=== PATIENT | female | born 1975 | race Two or more races ===

== ENCOUNTER 2018-10-12 07:20 | Day surgery (SDC) | payer MEDICAID ==
[~2018-10-12] VITALS: Ht 162.6 cm; Wt 102.5 kg
[2018-10-12 08:07] LABS: INR 1.17 (0.85-1.17); PROTIME 14.3 SECONDS (11.6-15.0)
[2018-10-12 08:08] LABS: APTT 34.3 SECONDS (22.8-39.4)
[2018-10-12 08:10] LABS: ANION GAP 16.3 mmol/L (8-16); CALCIUM 9.5 mg/dL (8.5-10.1); CARBON DIOXIDE 26.1 mmol/L (21.0-32.0); CREATININE - SERUM 4.9 mg/dL (0.6-1.3); POTASSIUM - SERUM 3.4 mmol/L (3.5-5.1)
[2018-10-12 08:17] LABS: BASOPHILS 0.7 % (0-2); EOSINOPHILS 5.6 % (0-7); HEMATOCRIT 33.4 % (36.0-48.0); HEMOGLOBIN 11.7 g/dL (12-16); IMMATURE GRANULOCYTES 0.3 % (0-5); LYMPHOCYTES 27.6 % (15-50); MCH 33.7 pg (26.0-34.0); MCV 96.3 fL (80.0-100.0); MEAN PLATELET VOLUME 9.8 fL (7.4-10.4); MONOCYTES 5.4 % (2-11); NEUTROPHILS 60.4 % (40-80); PLATELET COUNT 106 10x3/uL (130-400); RBC 3.47 10x6/uL (4.00-5.40)
[2018-10-12] MEDS ORDERED: XANAX0.5 MG PO (08:52)
[2018-10-12] MEDS ORDERED: METOLAZONE5 MG PO (08:53)
[2018-10-12] MEDS ORDERED: ZOLOFT100 MG PO (08:53)
[2018-10-12] MEDS ORDERED: COREG6.25 MG (08:53)
[2018-10-12] MEDS ORDERED: ZOFRAN8 MG PO (08:54)
[2018-10-12] MEDS ORDERED: CLOTRIMAZOLE-BETAMET (08:55)
[2018-10-12 09:11] VITALS: BP 107/38; BMI 38.9
[2018-10-12 09:31] VITALS: BP 107/38; Ht 162.6 cm; Wt 102.5 kg
[2018-10-12] MEDS ORDERED: INCRUSE ELLI62.5 MCG INH (09:42)
[2018-10-12 10:02] LABS: HCG SERUM NEGATIVE (NEGATIVE)
--- NOTE | 2018-10-12 14:29 | NUR ---
LAP PD CATH UNABLE TO DO, MARCUS.
--- NOTE | 2018-10-12 14:32 | NUR ---
REFER TO DR SALAZAR DICTATION FOR CANCELLATION OF PD CATH, MARCUS.
--- NOTE | 2018-10-12 16:16 | NUR ---
1530-RECD TO ROOM FROM PACU. DROWSY. RESP WITH EASE. 1545-[facility] AP[facility] FOR RENAL NOTIFIED ON PATIENTS RETURN, HAS AVF, AND PD UNABLE TO BE PLACED. CT THIS AFTERNOON BEFORE DISCHARGE. 1600-CT HERE WITH ORAL CONTRAST.
--- NOTE | 2018-10-12 16:54 | NUR ---
1650-TO CT VIA STRETCHER.
--- NOTE | 2018-10-12 17:33 | NUR ---
1715-returned from CT-renal tray ordered.
--- NOTE | 2018-10-15 16:17 | OP ---
PATIENT NAME: MADISON SHIN MEDICAL RECORD: [id number] :75 LOCATION:[facility] ADMISSION DATE: SURGEON: PASCUAL ALVAREZ MD DATE OF OPERATION: 10/12/2018 REFERRED BY: Rudy Wright MD PREOPERATIVE DIAGNOSES: End-stage renal disease and dependence on hemodialysis with a tunneled dialysis catheter as her only dialysis access. POSTOPERATIVE DIAGNOSES: End-stage renal disease and dependence on hemodialysis with a tunneled dialysis catheter as her only dialysis access, large pelvic and lower abdominal mass or tumor. SURGEON: Pascual Alvarez MD ANESTHESIA: General endotracheal anesthesia as well as regional block per DAIRY FARM SUPERVISOR. OPERATIONS PERFORMED: 1. Creation of a right wrist Renetta-type radiocephalic primary AV fistula. 2. Diagnostic laparoscopy. PREOPERATIVE NOTE: Ms. Shin is a 43-year-old female from [place], who has been on dialysis now for 9 or 10 months with a catheter and has not had long-term dialysis access, which she now needs. She was referred to me by Dr. Wright for that reason. She is brought to the operating room today with plans to place a peritoneal dialysis catheter and also to hopefully create a fistula in the right arm where the vein mapping has demonstrated disappointingly small vessels. After the block was administered and general anesthesia, the patient's right arm was prepped and draped in a sterile manner. I used a Alpine drain as a proximal venous tourniquet and applied nitroglycerin paste and did duplex ultrasound examination of the veins in the upper extremity and found that she had really an excellent cephalic vein in the forearm and at the wrist with an adequate radial artery of about 2.5 mm in diameter, and I elected to go ahead with a primary wrist Renetta fistula. This is done with the knowledge that there is some risk of it not maturing and adding further delay or additional time to the contact time she already has with the catheter, but hopefully this will mature. It looks like it was worth the chance at this point. Diagnostic laparoscopy initiated with plans to implant a peritoneal dialysis catheter and terminated when it was apparent that a mass was occupying a significant volume within the abdomen and pelvis and this was really making PD catheter implantation impossible. A longitudinal incision was made at the wrist and the cephalic vein exposed and dissected from the surrounding tissues. It was treated with topical papaverine intermittently. It was ligated distally and divided and bevelled. It was flushed with heparinized saline and hydrostatically distended and treated again with topical papaverine. The radial artery was then exposed. It was about a 2.5-mm vessel. It was controlled proximally and distally with Silastic tapes and also treated with topical papaverine. The vein was stripped of adventitia and prepared for anastomosis. The artery was occluded. An arteriotomy about 6 mm in length was made and the artery flushed proximally and distally with OPERATIVE REPORT [id number] MADISON SHIN heparinized saline. After that, an end-to-side, end-to-vein to [id number] anastomosis was carried out with running 7-0 Prolene and when that was completed and the occluding loops and clamps released, excellent pulsatile continuous flow developed immediately within the fistula manifested by palpable thrill and good Doppler signal and there was good flow in the radial artery proximal and distal to the anastomosis. The wound was infiltrated with 0.25% Marcaine without epinephrine and closed with interrupted 3-0 Vicryl and running intracuticular 4-0 Monocryl and Dermabond glue. It was dressed with Maxorb Ag, Tegaderm, and Cavilon skin prep. The patient's arm was then placed at her side and tucked beneath the drapes. The abdomen had been prepped and draped already for the laparoscopy. I made an incision in the left upper quadrant and inserted a 5-mm XL Optiview type port with a 5-mm 0-degree laparoscope in place. Pneumoperitoneum was established with carbon dioxide. Upon entering the abdominal cavity with the telescope, I found that there was really very little room. The patient was given additional paralytics and her anesthetic deepened and this resulted really at only modest improvement in the working space and visible field. I did find that there was a mass in the pelvis, which seemed to occupy or lie within the mesentery of the sigmoid colon and cecum. There was distortion of the ovaries and fallopian tubes stretched upward over this mass and there were 2 fairly small indirect inguinal hernias noted also. I did not do any biopsies. The mass was smooth and all of the visible surfaces and I think the next step will be to get a CT scan. The laparoscope was removed and insufflated carbon dioxide allowed to escape after which the 5-mm port was removed. One additional 5-mm port had been placed in the left lower quadrant for instruments and that port was also removed and that site infiltrated with Marcaine. Both were closed with interrupted inverted 3-0 Vicryl and Dermabond glue and dressed with Maxorb Ag, Tegaderm, and Cavilon skin prep. The patient was awakened and extubated and taken to the recovery room. PLAN: The patient should be able to go home today, and she will be appointed to return to see me in my office probably on of next week. In the meantime, she can leave the original operative dressing intact and she may shower. I will try to get a CT scan of the abdomen and pelvis with and without contrast done this afternoon before she leaves to go home. She will no doubt need further surgical referral for removal of this mass and at that time probably repair of her hernias and hopefully also insertion of peritoneal dialysis catheter. I have shown the intraoperative photographs to Dr. Cason, who agrees and is aware of the patient. TRANSINT:[id number] Voice Confirmation ID: [id number] DOCUMENT ID: [id number] cc: Eloy Bello [phone] Tanesha Orantes [facility] [phone] OPERATIVE REPORT [id number] MADISON SHIN JAMES MD at 1617 CC: DIALYSIS ELOY CENTRE EUGENE and RUDY WRIGHT [phone] DICTATION DATE: 10/12/18 1554 SOCIAL WORK PROGRAM COORDINATOR: 10/13/18 0324 [facility] 10/12/18 [facility] [address] [place] [address]
== END 2018-10-12 18:20 | disposition home or self-care (01) ==
LOC: D.OPS 07:20
PROVIDERS: Internal Medicine Nephrology; Surgery
DX: N18.6 End stage renal disease (principal); Z99.2 Dependence on renal dialysis; R19.09 Other intra-abdominal and pelvic swelling, mass and lump; Z01.812 Encounter for preprocedural laboratory examination

== ENCOUNTER 2019-03-29 07:11 | Day surgery (SDC) | payer MEDICAID ==
[~2019-03-29] VITALS: Ht 162.6 cm; Wt 101.6 kg
[~2019-03-29 07:11] MED LIST: CLOTRIMAZOLE-BETAMET; COREG6.25 MG; INCRUSE ELLI62.5 MCG INH; METOLAZONE5 MG PO; XANAX0.5 MG PO; ZOFRAN8 MG PO; ZOLOFT100 MG PO
[2019-03-29 07:25] LABS: BASOPHILS 0.7 % (0-2); EOSINOPHILS 4.3 % (0-7); HEMATOCRIT 33.5 % (36.0-48.0); HEMOGLOBIN 11.9 g/dL (12-16); IMMATURE GRANULOCYTES 0.4 % (0-5); LYMPHOCYTES 24.1 % (15-50); MCH 35.6 pg (26.0-34.0); MCHC 35.5 g/dL (31.0-37.0); MCV 100.3 fL (80.0-100.0); MEAN PLATELET VOLUME 9.8 fL (7.4-10.4); MONOCYTES 8.9 % (2-11); NEUTROPHILS 61.6 % (40-80); PLATELET COUNT 120 10x3/uL (130-400); RBC 3.34 10x6/uL (4.00-5.40); RDW 13.7 % (11.5-14.5); WBC 8.5 10x3/uL (4.8-10.8)
[2019-03-29 07:32] LABS: ANION GAP 17.2 mmol/L (8-16); CALCIUM 9.5 mg/dL (8.5-10.1); CARBON DIOXIDE 24.9 mmol/L (21.0-32.0); CREATININE - SERUM 4.1 mg/dL (0.6-1.3); POTASSIUM - SERUM 4.1 mmol/L (3.5-5.1)
[2019-03-29 07:33] LABS: INR 1.14 (0.85-1.17); PROTIME 14.1 SECONDS (11.6-15.0)
[2019-03-29 10:34] LABS: HCG SERUM NEGATIVE (NEGATIVE)
[2019-03-29] MEDS ORDERED: HYDROCHLOROTHIA25 MG PO (10:36)
[2019-03-29] MEDS ORDERED: LASIX80 MG (10:38)
[2019-03-29] MEDS ORDERED: FUROSEMIDE40 MG PO (10:39)
[2019-03-29] MEDS ORDERED: KLONOPIN1 MG PO (10:41)
[2019-03-29] MEDS ORDERED: OMEPRAZOLE40 MG PO (10:41)
[2019-03-29] MEDS ORDERED: K-DUR20 MEQ PO (10:42)
[2019-03-29 10:59] VITALS: BP 133/68; Ht 162.6 cm; Wt 101.6 kg
[2019-03-29] MEDS ORDERED: HYDROCODON-ACE1 EAC7 PO (15:30)
--- NOTE | 2019-04-01 11:07 | OP ---
PATIENT NAME: MADISON SHIN MEDICAL RECORD: [id number] :75 LOCATION:[facility] ADMISSION DATE: SURGEON: PASCUAL ALVAREZ MD DATE OF OPERATION: 03/29/2019 REFERRED BY: Lorenzo Wright MD PREOPERATIVE DIAGNOSES: End-stage renal disease, on dialysis and dependence on renal dialysis. Failure to mature right radiocephalic arteriovenous fistula. POSTOPERATIVE DIAGNOSES: End-stage renal disease, on dialysis and dependence on renal dialysis. Failure to mature right radiocephalic arteriovenous fistula. OPERATION PERFORMED: Failed attempt at revision of right radiocephalic AV fistula due to the diminutive size of the radial artery followed by creation of a brachiocephalic arteriovenous fistula. SURGEON: Pascual Alvarez MD ANESTHESIA: General with LMA per STEREOTYPER HELPER. PREOPERATIVE NOTE: Ms. Shin is a very nice 43-year-old female patient from [place]. She has end-stage renal disease and is on chronic hemodialysis. An attempt to place a peritoneal dialysis catheter was unsuccessful earlier this year due to large ptotic kidneys basically filling the pelvis. I created a radiocephalic AV fistula also earlier in the year and it has not matured. The radial artery is quite small and that is the problem. Attempts at fistulogram and dilatation have been unsuccessful due to inability to cross the arterial anastomosis and the diminutive size of the radial artery. She is brought to the operating room at this time for an attempt to revise her fistula or create a new one or possibly implant a forearm loop graft. DESCRIPTION OF PROCEDURE: Under general anesthesia, in supine position, the patient was prepped and draped in sterile manner. I examined her with ultrasound and again noted the small radial artery and identified the arterial anastomosis and saw that the fistula was patent, just not maturing. I made a longitudinal incision including the old scar and mobilized the cephalic vein and treated it with topical papaverine. I dissected the radial artery and found that it simply was only about 2 mm in diameter by the time it had some mild spasm and I did not think that I should open the radial artery or attempt an anastomosis there. Subsequently, that wound was closed with 3-0 Vicryl and intracuticular running 4-0 Monocryl. I made a transverse antecubital incision and mobilized the cephalic vein and brachial artery and performed an end-to-side anastomosis, end of vein to side of artery, done with running 7-0 Prolene. When completed and the occluding loops were released, excellent flow was established within the new fistula with pulsatile continuous Doppler flow and a palpable thrill over the anastomosis. I had ligated the cephalic vein in the first incision before wound closure, so venous pressure in the forearm should not be too high. Blood loss during the operation was about 10 or 15 cc, perhaps 20, and unreplaced. Sponges, instruments, and needles were accounted for. No surgical specimen was submitted for histopathology. During the dissection in the forearm, her tissues were friable, bled, and oozed OPERATIVE REPORT [id number] MADISON SHIN and I used electrocautery to help with hemostasis and realized that I had gotten quite close to the undersurface of the skin at one point. At the end of the case, when closing, I saw that there was a nickel-sized area of electrocautery burn injury to the skin. At least there is epidermolysis at that site. I am not certain whether this is going to be a full-thickness injury. The burn wound was covered by the operative dressing of Tegaderm and probably will not need to be redressed until I changed the dressing in my office next week. She will go home today and follow up with me in my office next week. She is given a prescription for #20, [place] 5/325. She can take one or two p.o. q. 4 hours p.r.n. pain. TRANSINT:[id number] Voice Confirmation ID: [id number] DOCUMENT ID: [id number] PASCUAL ALVAREZ MD at 1107 CC: [id number] DICTATION DATE: 03/29/19 155 UNDERGROUND TRUCK OPERATOR: 03/29/191941 [facility] 03/29/19 [facility] [address] [id number]
== END 2019-03-29 17:15 | disposition home or self-care (01) ==
LOC: D.OPS 07:11
PROVIDERS: Anesthesiology; Surgery; ATTEND Internal Medicine Nephrology
DX: T82.898A Other specified complication of vascular prosthetic devices, implants and grafts, initial encounter (principal); Y83.9 Surgical procedure, unspecified as the cause of abnormal reaction of the patient, or of later complication, without mention of misadventure at the time of the procedure; N18.6 End stage renal disease; Z99.2 Dependence on renal dialysis

== ENCOUNTER 2019-12-20 06:03 | Day surgery (SDC) | payer MEDICAID ==
[~2019-12-20] VITALS: Ht 162.6 cm; Wt 98.9 kg
--- NOTE | ~2019-12-20 | OP ---
PATIENT NAME: MADISON SHIN MEDICAL RECORD: [id number] :75 LOCATION:[facility] ADMISSION DATE: SURGEON: PASCUAL ALVAREZ MD DATE OF OPERATION: 12/20/2019 REFERRING PHYSICIAN: Dr. Raymond PREOPERATIVE DIAGNOSIS: Failure to mature left brachiocephalic arteriovenous fistula. ADDITIONAL DIAGNOSES: End-stage renal disease and dependence on hemodialysis and morbid obesity. PREOPERATIVE NOTE: Ms. Shin is a very nice 44-year-old female from [place] with end-stage renal disease and problem with access. She is presently dialyzing with a left brachiocephalic AV fistula, which has only a very short usable segment and the vein in the upper two-thirds of the arm is deep and I am going to revise her fistula by superficializing that vein today. She also needs a bridging short-term dialysis catheter. She has had multiple prior catheters on the right side and has intermittent liver biopsies done from the left internal jugular approach, and in order to preserve that access, she has accepted my recommendation that we insert a femoral catheter today and take it out as soon as we can. Under general anesthesia, the patient was prepped and draped in a sterile manner. I mapped the course of her cephalic vein fistula with a duplex ultrasound and then exposed the vein through a long incision in the proximal 2/3 of the arm. The vein was dissected from the surrounding tissues and tributaries divided between ligatures of Vicryl and small Hemoclips. The vein was treated with topical papaverine. The vein is only about 1 cm in diameter. Her tissues are in general extremely fragile. The hemostasis was obtained with electrocautery. The wound then infiltrated and irrigated with 0.25% Marcaine without epinephrine. The wound was closed, closing the superficial tissues deep to the vein, so that it would remain in an immediate subcutaneous level and the skin was then closed over the vein with a running intracuticular 4-0 Stratafix and Dermabond glue. The incision was dressed with Maxorb Ag, Tegaderm, and Cavilon skin prep. The patient was then reprepped and redraped and the right femoral vein examined with ultrasound. It was of normal caliber and there was no evidence of thrombosis and it was fully compressible. The proximal saphenous vein was patent and it was the most superficial vein in her thigh that I could use for access and so after making small incision in the upper thigh just below the groin crease and using a continuous real-time ultrasound guidance, I placed a micropuncture needle and guidewire via the proximal greater saphenous vein via the right femoral vein and then performed a catheter and wire exchange and passed dilators over the wire and lastly a peel-away dilator introducer. I chose a 35 cm long HemoSplit and brought this up through a small stab incision on the anterolateral thigh to the groin incision and then inserted it through the peelaway sheath as it was removed. Under fluoroscopy, the catheter was seen to advance without obstruction and I was able to keep the split ends of the catheter reasonably together with the arterial limb to the patient's right side. The catheter was aspirated and both lumens returned blood very easily. They were then flushed with saline and then heparin locked with heparin 100 units per cc in measured volumes. The groin incision was closed with interrupted inverted 3-0 Vicryl and Dermabond glue, Maxorb Ag, Tegaderm, and Cavilon skin prep. The catheter at the exit site was dressed with a Biopatch and a standard CVL OPERATIVE REPORT [id number] MADISON SHIN adhesive plastic dressing. She was at that point awakened and taken to the recovery room. Blood loss was insignificant and unreplaced. Sponges, instruments, and needles were accounted for. No drain was used and no surgical specimen submitted. She will be given a prescription for [place] 5/325 ten tablets, she can take one or if needed two q.4 hours p.r.n. pain. She is advised to use ice on the thigh off and on, and as well if she wishes, she may use an ice pack for short periods off and on the right upper arm. She is to continue her regular dialysis schedule dialyzing via the catheter in the right thigh and I will arrange for her to have a followup visit in my office. I anticipated and I am hoping that we will be able to start using her fistula again in 2 weeks and at least the segment in the lower third of the arm, which we had been using all along and then get that tunneled catheter out in the next 2-4 weeks. She is to continue her same medications, diet, and dialysis schedule and activities. Ultrasound images from the ultrasound guided femoral vein catheter insertion were recorded on paper and kept in the patient's record for permanent documentation purposes. TRANSINT:[id number] Voice Confirmation ID: [id number] DOCUMENT ID: [id number] cc: [facility] in [place], [place]. PASCUAL ALVAREZ MD CC: JERICA RAYMOND DO [id number] DICTATION DATE: 12/20/19 1525 SENIOR PAYROLL MANAGER: 12/21/19 0113 [facility] 12/20/19 [id number] [place] [address]
[~2019-12-20 06:03] MED LIST changes: +FUROSEMIDE40 MG PO; +HYDROCHLOROTHIA25 MG PO; +HYDROCODON-ACE1 EAC7 PO; +K-DUR20 MEQ PO; +KLONOPIN1 MG PO; +LASIX80 MG PO; +OMEPRAZOLE40 MG PO
[2019-12-20 06:22] LABS: BASOPHILS 0.3 % (0-2); HEMATOCRIT 34.1 % (36.0-48.0); HEMOGLOBIN 11.6 g/dL (12-16); IMMATURE GRANULOCYTES 0.4 % (0-5); MCH 37.9 pg (26.0-34.0); MCV 111.4 fL (80.0-100.0); MEAN PLATELET VOLUME 9.9 fL (7.4-10.4); MONOCYTES 7.8 % (2-11); NEUTROPHILS 66.5 % (40-80); PLATELET COUNT 132 10x3/uL (130-400); RBC 3.06 10x6/uL (4.00-5.40); RDW 14.9 % (11.5-14.5); WBC 9.8 10x3/uL (4.8-10.8)
[2019-12-20 06:44] LABS: INR 1.08 (0.85-1.17)
[2019-12-20 06:52] LABS: HCG SERUM NEGATIVE (NEGATIVE)
[2019-12-20] MEDS ORDERED: METOLAZONE2.5 MG PO (07:09)
[2019-12-20] MEDS ORDERED: SEROQUEL25 MG PO (07:09)
[2019-12-20 07:28] VITALS: BP 112/56; Ht 162.6 cm; Wt 98.9 kg
[2019-12-20 07:30] LABS: CALCIUM 7.4 mg/dL (8.5-10.1); CARBON DIOXIDE 24.7 mmol/L (21.0-32.0); CREATININE - SERUM 3.7 mg/dL (0.6-1.3)
[2019-12-20 07:39] LABS: POTASSIUM - SERUM 2.7 mmol/L (3.5-5.1)
[2019-12-20] MEDS ORDERED: HYDROCODON-ACE1 EAC7 PO (13:30)
== END 2019-12-20 16:45 | disposition home or self-care (01) ==
LOC: D.OPS 06:03
PROVIDERS: Anesthesiology; ATTEND Surgery
DX: E11.22 Type 2 diabetes mellitus with diabetic chronic kidney disease (principal); N18.6 End stage renal disease; Z99.2 Dependence on renal dialysis; E66.01 Morbid (severe) obesity due to excess calories; T82.898A Other specified complication of vascular prosthetic devices, implants and grafts, initial encounter; J45.909 Unspecified asthma, uncomplicated; E07.9 Disorder of thyroid, unspecified